=== PATIENT | male | born 1965 | race African-American/Black ===

== ENCOUNTER 2021-06-23 16:42 | Emergency (ER) | payer MEDICAID ==
[~2021-06-23] VITALS: Ht 172.7 cm; Wt 97.5 kg
[2021-06-23 18:03] VITALS: BP 172/87
== END 2021-06-23 18:18 | disposition home or self-care (01) ==
LOC: ER 16:42
DX: S61.412A Laceration without foreign body of left hand, initial encounter (principal); X58.XXXA Exposure to other specified factors, initial encounter; Y93.89 Activity, other specified; Y92.89 Other specified places as the place of occurrence of the external cause; Y99.8 Other external cause status
CPT/HCPCS: 12001; 99282; J2001

== ENCOUNTER 2023-04-01 21:58 | Inpatient (IN) | payer MEDICAID ==
[~2023-04-01] VITALS: Ht 167.6 cm; Wt 97.9 kg
[2023-04-01 22:32] LABS: Basophils # (auto) 0 10 ^3/uL (0-0.2); Basophils % (auto) 1.1 % (0.0-2.0); Eosinophils # (auto) 0.3 10 ^3/uL (0-0.8); Eosinophils % (auto) 6.6 % (0.0-7.0); Hemoglobin 13.2 g/dL (13.5-17.5); Lymphocytes % (auto) 25.1 % (10.0-50.0); Mean Corpuscular Hemoglobin 28.4 pg (28.0-32.0); Mean Corpuscular Hgb Conc. 33.1 g/dL (32.0-36.0); Monocytes # (auto) 0.6 10 ^3/uL (0-1.3); Monocytes % (auto) 13.5 % (0.0-12.0); Neutrophils # (auto) 2.2 10 ^3/uL (1.6-8.6); Neutrophils % (auto) 53.7 % (37.0-80.0); Nucleated Red Blood Cells % 0.2 %; Red Blood Cells 4.66 10^6/uL (4.5-5.90); Red Cell Distribution Width 14.6 % (11.8-14.3); White Blood Cell 4.1 10^3/uL (4.4-10.8)
[2023-04-01 22:45] LABS: Alanine Aminotransferase 28 U/L (7-40); Albumin 4.1 g/dL (3.2-4.8); Alkaline Phosphatase 50 U/L (46-116); Anion Gap 8 (5-15); Aspartate Aminotransferase 34 U/L (13-40); BUN/Creatinine Ratio 8.3 (10.0-20.0); Bilirubin, Total 0.4 mg/dL (0.2-1.0); Blood Urea Nitrogen 10 mg/dL (9-23); Calcium 8.8 mg/dL (8.7-10.4); Carbon Dioxide 23 mmol/L (20-30); Chloride 106 mmol/L (98-107); Magnesium 2.1 mg/dL (1.6-2.6); Potassium 3.1 mmol/L (3.5-5.1); Sodium 137 mmol/L (136-145); Total Protein 6.9 g/dL (5.7-8.2)
[2023-04-01 22:50] LABS: Urine Bacteria NONE SEEN /hpf (None Seen); Urine Blood Negative /uL (Negative); Urine Clarity Clear (Clear); Urine Color Yellow (Yellow); Urine Mucus FEW (None Seen); Urine Protein, UAD Negative (Negative); Urine Specific Gravity 1.027 (1.001-1.035); Urine Urobilinogen Normal (Negative); Urine WBC 1 /hpf (0 - 3)
[2023-04-01 23:05] LABS: Glucose 162 mg/dL (74-106)
[2023-04-01 23:07] LABS: INR 1.04 (0.9-1.15); Partial Thromboplastin Time 31.5 SEC (24.5-34.5); Prothrombin Time 10.9 sec (9.3-11.8)
[2023-04-01] MEDS ORDERED: ASPirin 325 MG TAB PO ONE (23:15)
[2023-04-02] MEDS ORDERED: MORPHINE SULFATE INJ 2 MG/ml SYRG IV PRN ×2 (01:30)
[2023-04-02] MEDS ORDERED: NITROGLYCERIN 0.4 MG SL TAB SL PRN (01:30)
[2023-04-02] MEDS ORDERED: TEMAZEPAM 15 MG CAP PO PRN (01:30)
[2023-04-02] MEDS ORDERED: ACETAMINOPHEN 325 MG TAB PO PRN (01:30)
[2023-04-02] MEDS ORDERED: NITROGLYCERIN 0.4 MG SL TAB SL ONE (01:30)
[2023-04-02] MEDS ORDERED: ONDANSETRON HCL 4 MG/2 ML VIAL IV PRN ×2 (01:30)
[2023-04-02] MEDS ORDERED: CALCIUM CARB 500 MG CHEW TAB PO PRN (01:30)
[2023-04-02] MEDS ORDERED: DOCUSATE SOD 100 MG CAP PO PRN (01:30)
[2023-04-02 02:16] VITALS: PULSE 64; RESP 18; O2SAT 99
[2023-04-02 08:12] LABS: Cholesterol 148 mg/dL (< 200); LDL Cholesterol 67 mg/dL (< 100); Triglycerides 152 mg/dL (< 150)
[2023-04-02 08:13] LABS: HDL Cholesterol 26 mg/dL (40-59)
[2023-04-02] MEDS ORDERED: ENOXAPARIN SOD 40 MG/0.4 ML SYRINGE SC SCH (10:00)
[2023-04-02 10:35] LABS: Basophils # (auto) 0 10 ^3/uL (0-0.2); Basophils % (auto) 0.9 % (0.0-2.0); Eosinophils # (auto) 0.2 10 ^3/uL (0-0.8); Eosinophils % (auto) 4.9 % (0.0-7.0); Hemoglobin 13.4 g/dL (13.5-17.5); Lymphocytes # (auto) 1.1 10 ^3/uL (0.4-5.4); Lymphocytes % (auto) 24.4 % (10.0-50.0); Mean Corpuscular Hemoglobin 28.7 pg (28.0-32.0); Mean Corpuscular Hgb Conc. 33.5 g/dL (32.0-36.0); Mean Corpuscular Volume 85.7 fL (80.0-100.0); Monocytes # (auto) 0.5 10 ^3/uL (0-1.3); Monocytes % (auto) 10.9 % (0.0-12.0); Neutrophils # (auto) 2.6 10 ^3/uL (1.6-8.6); Neutrophils % (auto) 58.9 % (37.0-80.0); Nucleated Red Blood Cells % 0.1 %; Red Blood Cells 4.66 10^6/uL (4.5-5.90); Red Cell Distribution Width 14.6 % (11.8-14.3); White Blood Cell 4.4 10^3/uL (4.4-10.8)
[2023-04-02 10:55] LABS: Alanine Aminotransferase 33 U/L (7-40); Albumin 4.1 g/dL (3.2-4.8); Alkaline Phosphatase 50 U/L (46-116); Anion Gap 4 (5-15); Aspartate Aminotransferase 28 U/L (13-40); BUN/Creatinine Ratio 11.4 (10.0-20.0); Bilirubin, Total 0.4 mg/dL (0.2-1.0); Blood Urea Nitrogen 13 mg/dL (9-23); Calcium 9.1 mg/dL (8.5-10.1); Carbon Dioxide 30 mmol/L (20-30); Chloride 105 mmol/L (98-107); Glucose 141 mg/dL (74-106); Sodium 139 mmol/L (136-145); Total Protein 7.1 g/dL (5.7-8.2)
[2023-04-02] MEDS: ASPirin 81 mg TAB PO SCH (11:20)
[2023-04-02] MEDS: PANTOPRAZOLE 40 MG/10 ML VIAL INJ IV SCH (11:20)
[2023-04-02] MEDS: ENOXAPARIN SOD 100 MG/1 ML SYRINGE SC SCH ×2 (15:29→22:59)
[2023-04-02 18:20] VITALS: PULSE 65; RESP 20; O2SAT 99
[2023-04-02 19:28] VITALS: PULSE 69; RESP 17; O2SAT 99
[2023-04-02] MEDS: HYDROcodone-ACET 5/325MG TAB PO PRN (19:57)
[2023-04-02 21:57] VITALS: O2SAT 97
[2023-04-02 22:40] VITALS: BP 155/82; PULSE 61; RESP 18; TEMP 97.7; O2SAT 97
[2023-04-02] MEDS: ATORVASTATIN 20 MG TAB PO SCH (23:00)
[2023-04-03] VITALS (12 sets, daily range): BP systolic 124–151; BP diastolic 71–88; PULSE 50–102; RESP 11–21; TEMP 97.6–98; O2SAT 90–100
[2023-04-03 06:09] LABS: Basophils # (auto) 0 10 ^3/uL (0-0.2); Basophils % (auto) 1.1 % (0.0-2.0); Eosinophils # (auto) 0.2 10 ^3/uL (0-0.8); Lymphocytes # (auto) 1.2 10 ^3/uL (0.4-5.4); Lymphocytes % (auto) 27.6 % (10.0-50.0); Mean Corpuscular Hemoglobin 28.6 pg (28.0-32.0); Mean Corpuscular Hgb Conc. 33.4 g/dL (32.0-36.0); Mean Corpuscular Volume 85.5 fL (80.0-100.0); Monocytes # (auto) 0.6 10 ^3/uL (0-1.3); Monocytes % (auto) 13.2 % (0.0-12.0); Neutrophils # (auto) 2.3 10 ^3/uL (1.6-8.6); Neutrophils % (auto) 53.1 % (37.0-80.0); Nucleated Red Blood Cells % 0.2 %; Red Blood Cells 4.91 10^6/uL (4.5-5.90); Red Cell Distribution Width 14.7 % (11.8-14.3); White Blood Cell 4.4 10^3/uL (4.4-10.8)
[2023-04-03 06:15] LABS: Albumin 3.9 g/dL (3.2-4.8); Alkaline Phosphatase 39 U/L (46-116); Anion Gap 6 (5-15); Aspartate Aminotransferase 40 U/L (13-40); Bilirubin, Total 0.3 mg/dL (0.2-1.0); Calcium 8.6 mg/dL (8.5-10.1); Carbon Dioxide 26 mmol/L (20-30); Chloride 107 mmol/L (98-107); Glucose 100 mg/dL (74-106); Sodium 139 mmol/L (136-145); Total Protein 6.9 g/dL (5.7-8.2)
[2023-04-03 06:17] LABS: BUN/Creatinine Ratio 9.2 (10.0-20.0)
[2023-04-03 06:18] LABS: Alanine Aminotransferase 28 U/L (7-40); Blood Urea Nitrogen 10 mg/dL (9-23)
[2023-04-03] MEDS ORDERED: LIDOCAINE 2%HCL (LOCAL ANESTH.) INJ 20ML MDV ONE ×2 (07:31→09:34)
[2023-04-03] MEDS ORDERED: IODIXANOL 320MG/ML 100ML BTL IV ONE ×4 (07:31→10:55)
[2023-04-03] MEDS ORDERED: MIDAZOLAM HCL 2MG/2ML 2ml VIAL (1mg/ml) ONE (09:33)
[2023-04-03] MEDS ORDERED: HEPARIN SODIUM (PORCINE) 5000 UNITS/ML 1ML VIAL ONE (09:33)
[2023-04-03] MEDS ORDERED: VERAPAMIL 2.5MG/ML INJ 2ML VIAL IV ONE (09:33)
[2023-04-03] MEDS ORDERED: fentaNYL CITRATE 100 MCG/2 ML VL ONE (09:33)
[2023-04-03] MEDS ORDERED: ANGIOMAX 250 MG VIAL IV ONE (09:33)
[2023-04-03] MEDS ORDERED: SODIUM CHL 0.9% 50 ML ONE (09:34)
[2023-04-03] MEDS: ASPirin 81 mg TAB PO SCH (10:00)
[2023-04-03] MEDS: PANTOPRAZOLE 40 MG/10 ML VIAL INJ IV SCH (10:00)
[2023-04-03] MEDS ORDERED: TICAGRELOR 90 MG TAB ONE (11:02)
[2023-04-03] MEDS ORDERED: ASPirin 81 mg TAB ONE (11:02)
[2023-04-03] MEDS: HYDROcodone-ACET 5/325MG TAB PO PRN (20:36)
[2023-04-03] MEDS: TICAGRELOR 90 MG TAB PO SCH (22:46)
[2023-04-03] MEDS: ATORVASTATIN 20 MG TAB PO SCH (22:46)
[2023-04-03] MEDS: METOPROLOL TARTRATE 25 MG TAB PO SCH (22:47)
[2023-04-04] VITALS (8 sets, daily range): BP systolic 130–150; BP diastolic 70–108; PULSE 56–87; RESP 20–21; TEMP 36.7; O2SAT 96–99
[2023-04-04] MEDS: ASPirin 81 mg TAB PO SCH (09:32)
[2023-04-04] MEDS: PANTOPRAZOLE 40 MG/10 ML VIAL INJ IV SCH (09:34)
[2023-04-04] MEDS: TICAGRELOR 90 MG TAB PO SCH (09:34)
[2023-04-04] MEDS: METOPROLOL TARTRATE 25 MG TAB PO SCH (09:34)
[2023-04-04] MEDS ORDERED: ENALAPRIL MALEATE 2.5 MG TAB PO SCH (10:00)
[2023-04-04] MEDS ORDERED: ENAL1TAB42 PO (13:45)
[2023-04-04] MEDS ORDERED: MET25T PO (13:45)
[2023-04-04] MEDS ORDERED: TICA90TA PO (13:45)
[2023-04-04] MEDS ORDERED: ASPI-325 PO (13:45)
[2023-04-04] MEDS ORDERED: ATOR20TA50 PO (13:45)
== END 2023-04-04 16:15 | disposition home or self-care (01) | DRG 174 ==
LOC: ER 21:58 → TELE 04-02 01:32 → TELE-CENTR 04-02 21:34
PROVIDERS: ADMIT Nurse Practitioner; ATTEND Nurse Practitioner
PROC: 027034Z Dilation of Coronary Artery, One Artery with Drug-eluting Intraluminal Device, Percutaneous Approach (ICD-10-PCS; principal; 2023-04-03)
PROC: 4A023N7 Measurement of Cardiac Sampling and Pressure, Left Heart, Percutaneous Approach (ICD-10-PCS; 2023-04-03)
PROC: B211YZZ Fluoroscopy of Multiple Coronary Arteries using Other Contrast (ICD-10-PCS; 2023-04-03)
PROC: B215YZZ Fluoroscopy of Left Heart using Other Contrast (ICD-10-PCS; 2023-04-03)
DX: I21.4 Non-ST elevation (NSTEMI) myocardial infarction (principal); E11.9 Type 2 diabetes mellitus without complications; I25.110 Atherosclerotic heart disease of native coronary artery with unstable angina pectoris; E66.9 Obesity, unspecified; E78.5 Hyperlipidemia, unspecified; R79.89 Other specified abnormal findings of blood chemistry; I10 Essential (primary) hypertension; Z91.148 Patient's other noncompliance with medication regimen for other reason; Z95.5 Presence of coronary angioplasty implant and graft; Z68.34 Body mass index [BMI] 34.0-34.9, adult; Z82.49 Family history of ischemic heart disease and other diseases of the circulatory system; I25.2 Old myocardial infarction
CPT/HCPCS: 36415; 71045; 80053; 80061; 81001; 83036; 83735; 83880; 84443; 84484; 85025; 85610; 85730; 92928; 93005; 93306; 93458; 93886; 99152; C9113; G0378; J2250; Q9967